=== PATIENT | female | born 1985 | race African-American/Black ===

== ENCOUNTER 2017-04-22 19:05 | Emergency (ER) | payer OTHER ==
[2017-04-22] MEDS ORDERED: VITAMIN D1000 UNIT (19:15)
== END 2017-04-22 20:15 | disposition home or self-care (01) ==
LOC: SED 19:05 → CED 20:15 → SED 20:15
DX: S46.912A Strain of unspecified muscle, fascia and tendon at shoulder and upper arm level, left arm, initial encounter (principal); S46.911A Strain of unspecified muscle, fascia and tendon at shoulder and upper arm level, right arm, initial encounter; V43.52XA Car driver injured in collision with other type car in traffic accident, initial encounter; Y92.410 Unspecified street and highway as the place of occurrence of the external cause
CPT/HCPCS: 99283